=== PATIENT | male | born 1955 | race African-American/Black ===

== ENCOUNTER → 2019-03-05 11:33 | Outpatient (CLI) | payer MEDICARE, SELFPAY ==
[2014-05-01 09:12] VITALS: BMI 33.7
--- NOTE | 2019-03-05 11:51 | EKG12_ITS ---
Test Reason : PRE OP Blood Pressure : / mmHG Vent. Rate : 084 BPM Atrial Rate : 084 BPM P-R Int : 152 ms QRS Dur : 088 ms QT Int : 388 ms P-R-T Axes : 044 -32 014 degrees QTc Int : 458 ms Normal sinus rhythm Possible Left atrial enlargement Left axis deviation Abnormal ECG When compared with ECG of 01-MAY-2014 05:49, Nonspecific T wave abnormality, improved in Inferior leads Nonspecific T wave abnormality no longer evident in Lateral leads Confirmed by SANCHEZ TAN ([id number]), book or script editor LILIAN ROBB ([id number]) on 03/07/2019 9:01:22 AM Referred By: Khoa Rodriguez Confirmed By:SANCHEZ TAN
[2019-03-05 13:11] LABS: Hemoglobin 14.7 g/dL (13.0-16.5); Mean Corp Hgb Conc 32.7 g/dL (32-36); Mean Corpuscular Hgb 27.5 pg (27.0-32.0); Mean Corpuscular Volume 84.1 fL (80-94); Mean Platelet Vol. 11.7 fl (6.2-12.0); POSITIVE COUNT YES; RBC Distribution Width CV 13.6 % (11.6-14.6); RBC Distribution Width SD 41.8 fl (35.1-43.9); Red Blood Count 5.35 M/mm3 (4.6-6.2); White Blood Count 5.7 K/mm3 (4.4-11.0)
[2019-03-05 13:38] LABS: Scan Indicated on CBC? Y/N YES- FLAGS NOTED
[2019-03-05 13:40] LABS: Anion Gap 5 (5-15); BUN 15 mg/dL (7-18); BUN/Creat Ratio 13.2 RATIO (10-20); Calcium,Total 9.1 mg/dL (8.5-10.1); Chloride 102 mmol/L (98-107); Creatinine, Serum 1.14 mg/dL (0.70-1.30); EST Glomerular Filtration Rate 68 mL/min (>60); Est Glom Filt Rate - Afr Amer 83 mL/min (>60); Glucose 111 mg/dL (74-106); Potassium 3.6 mmol/L (3.5-5.1); Sodium Level 138 mmol/L (136-145)
== END ==
PROVIDERS: Family Provider Family Medicine; PCP Family Medicine; Referring Provider Otolaryngology; Visit Provider Otolaryngology
DX: Z01.818 Encounter for other preprocedural examination (principal)
CPT/HCPCS: 36415; 80048; 85027; 93005

== ENCOUNTER → 2020-01-07 09:57 | Outpatient (CLI) | payer MEDICARE, SELFPAY ==
--- NOTE | 2020-01-07 10:05 | RAD_ITS ---
STUDY: X-RAY - RIGHT SHOULDER REASON FOR EXAM: Male, 64 years old. Pain. TECHNIQUE: 4 view(s) of the shoulder. COMPARISON: None. FINDINGS: There is mild degenerative arthrosis of the glenohumeral articulation. There is degenerative arthrosis of the acromioclavicular joint without inferior osseous spur formation. There is a curved undersurface of the acromion consistent with a Type II morphology. There is no acute fracture, dislocation or destructive osseous pathology. There is demineralization of the humerus and visualized osseous structures. The soft tissue structures are unremarkable. Normal visualized pulmonary apex. RAD/Shoulder min 2 Views IMPRESSION: Degenerative change left shoulder without fracture or dislocation Electronically Signed: Kenan Jang DO at 18:48 EST Tel [phone], Service support ,
== END ==
PROVIDERS: PCP Family Medicine; Referring Provider Family Medicine; Visit Provider Family Medicine
DX: M25.511 Pain in right shoulder (principal)
CPT/HCPCS: 73030

== ENCOUNTER 2023-01-23 16:00 | Outpatient (RCR) | payer MEDICARE, SELFPAY ==
--- NOTE | 2022-12-21 16:12 | HP.PTEVAL ---
Patient's Visit Information Visit Information Visit Information: MICHELLE BORJA is a 67 year old M referred to Physical Therapy by Dr. Dwaine Mario MD with a diagnosis of R LB radiculopathy. Date of Evaluation: 12/21/22 Physical Therapist: Yvan Hollingsworth, DENYT, OCS, CSCS Visit Plan Frequency: 2-3x /Week Duration: 4-6 Weeks Plan: 2-3x/week for 3-6 weeks for 1. NS education and strengthening 2. flexion bias ROM streetches (possibly lossings traction if needed after work) 3, General overall strength of body in NS position. Subjective Subjective: Was having pain in leg and upper thigh and back. Got x rays. Pain is R LB and R lateral thigh. Intermittent. Duration 3-4 months now. Not sure what started it. no problems typically with back. Started working and standing on feet alot. Job is at [employer] overnight [employer] 8 hrs shifts. Was retired previously. Worse after work and on feet all night. Pain starts mid shift. Started job in June. Did a lot of sitting when he was retired. Not much exercising. Typically comfortable when sitting. Rests after work and leg felt much better when he doesn't work. Sleep is interrupted if he tries right after work. Hobbies : no hobbies Basic ADLs all OK, can be painful, steps are no problem. Pain R LBP and leg: Pain Intensity (Out of 10): 1 Pain Intensity Range: 0 and 7 Objective Objective: Walks somewhat stiff but I into and out of PT with good balance. Transfers I bed and chair. Steps reciprocal with one rail. Lumbar AROM ext max limited and painful central R, R sB mod limited and painful, L SB mod limited, flexion just stretchy and mod limited. HS and psoas min to mod tight. Posture is flat lordosis and very little pelvic movement in standing /sitting/lying. reflexes 1/3 patella and achilles B sensation LE WNL to B gross light touch. Strength LE 4+ in knees and ankles, hip flexion and rotation 4-. core strength 3+ abs and extensors. Balance/Special Test Scores Oswestry Low Back Score: 17 Goals Goal 1:: I appropriate HEP to limit future problems with pain Goal Time Frame: 4-6 Weeks Goal 2:: Sleep without interruption after work Goal Time Frame: 4-6 Weeks Goal 3:: patient LB pain 2/10 at worst and only in back, 75% better Goal Time Frame: 4-6 Weeks Goal 4:: oswestry score 5 or less Goal Time Frame: 4-6 Weeks Rehabilitation Potential Physical Therapy Diagnosis: r LB radiculopathy pain limiting quality of life and function at home. Rehabilitation Potential: Good Anticipated Interventions Patient/Client Instruction: Educate patient on: Condition and Risk Factors For the Purpose of:: To decrease pain, To increase ROM, To improve nutrient delivery to tissue, To increase tolerance to activity/condition/position, To improve ability of physical actions for home/community/work/leisure and To improve gait and locomotor functions Therapeutic Exercise to Include: Strength training, Postural training, Flexibilty training, Gait and locomotor training, Passive ROM, Active ROM and Dynamic Lumbar Stabilization For the Purpose of:: To decrease pain, To increase ROM, To improve nutrient delivery to tissue, To improve muscle performance and motor function, To increase tolerance to activity/condition/position and To improve ability of physical actions for home/community/work/leisure Manual Therapy Techniques to Include: Mobilization and Passive ROM For the Purpose of:: To decrease pain, To increase ROM and To improve nutrient delivery to tissue Thermo therapy (hot pack): Yes Pelvic traction prone: Yes (lossings) For the Purpose of:: To decrease pain Text: Thank you for the opportunity to evaluate your patient. For Medicare and Medicare HMO plans, please review the plan of care and approve it. It will need to be FAXED BACK to us at [phone] for Medicare purposes. For Medicare only, by signing this I certify the plan of care. Please let me know if there are questions or concerns regarding this plan of care. Physician Signature: Date:
--- NOTE | 2023-03-31 14:12 | HP.PTDCSUM ---
Discharge Summary BLANK: Oatient to return to doctor for next step and continue exercises independently according to last PT recheck. D/C summary: It has been my pleasure to treat MICHELLE BORJA referred by Dr. Dwaine Mario MD, with the diagnosis of R LB radiculopathy for a total of 11 visit(s). Discharge Date: Please see the following information for a summary of their discharge status. Subjective Subjective: patient is located right side to right lower ,longer standing worse 4-6 HRS Better with resting and standing May need MRI per MD Pain R LBP and leg: Pain Intensity (Out of 10): 1 Overall Improvement % Improvement: 50 Objective Objective/Function: GAIT: reciprocal pattern MMT: quads/hams/hip 4/5 ,ankle 5/5 FLEXABLITY: hamstrings min tight LUMBAR ROM: flexion WFL ,extension min loss ,side glides min loss Goals Goal 1:: I appropriate HEP to limit future problems with pain Goal 2:: Sleep without interruption after work Goal 3:: patient LB pain 2/10 at worst and only in back, 75% better Goal 4:: oswestry score 5 or less Plan Plan: RTD MAY MRI BASED ON SYMPTOMS OR CONT ON OWN HEP D/C Information d/c sentence: If there are questions or concerns regarding this patient's physical therapy, please feel free to call me at [phone]. Thank you for the referral of this patient. Sincerely, Yvan Hollingsworth, DPT, OCS, CSCS Balance/Gait/Functional tests Balance/Special Test Scores Oswestry Low Back Score: 3 Improvement % Improvement: 50
== END 2023-01-23 19:00 | disposition home or self-care (01) ==
LOC: PT 16:00
PROVIDERS: PCP Family Medicine; Referring Provider Family Medicine; Visit Provider Family Medicine
DX: M54.16 Radiculopathy, lumbar region (principal)
CPT/HCPCS: 97012; 97110; 97161; 97530